=== PATIENT | female | born 2000 | race Caucasian/White ===

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

== ENCOUNTER 2019-07-09 17:04 | Emergency (ER) | payer MEDICAID, OTHER ==
[~2019-07-09] VITALS: Ht 157.5 cm; Wt 93.2 kg
[2019-07-09] MEDS ORDERED: HYDROcodone/acetaminophen 5mg/325mg tablet PO ONE (20:15)
[2019-07-09] MEDS ORDERED: TRAM50TA2 PO (20:37)
[2019-07-09 20:57] VITALS: BP 124/74
== END 2019-07-09 20:55 | disposition home or self-care (01) ==
LOC: ER 17:04
DX: L98.8 Other specified disorders of the skin and subcutaneous tissue (principal); L73.2 Hidradenitis suppurativa; F41.9 Anxiety disorder, unspecified; Z98.890 Other specified postprocedural states; Z88.8 Allergy status to other drugs, medicaments and biological substances; Z79.899 Other long term (current) drug therapy
CPT/HCPCS: 99283

== ENCOUNTER 2019-09-06 16:17 | Emergency (ER) | payer MEDICAID, OTHER ==
[~2019-09-06] VITALS: Ht 157.5 cm; Wt 90.9 kg
[2019-09-06 16:34] VITALS: BP 114/74
[2019-09-06] MEDS ORDERED: morphine 10mg/ml inj. IM ONE (18:25)
[2019-09-06] MEDS ORDERED: sulfamethoxazole/trimethoprim DS (800/160mg) tablet PO ONE (18:25)
[2019-09-06] MEDS ORDERED: BACDS PO (18:25)
--- NOTE | 2019-09-06 19:14 | NUR ---
SPOKE TO PROVIDER, HE HAS NOT ADDRESSED THE PT'S FOOT, HE WILL RETURN AND SEE PT
== END 2019-09-06 19:44 | disposition home or self-care (01) ==
LOC: ER 16:17
DX: L03.317 Cellulitis of buttock (principal); L73.2 Hidradenitis suppurativa; Z90.89 Acquired absence of other organs; Z88.8 Allergy status to other drugs, medicaments and biological substances; Z79.899 Other long term (current) drug therapy
CPT/HCPCS: 10060; 73630; 96372; 99284; J2270